=== PATIENT | female | born 1985 | race Two or more races ===

== ENCOUNTER 2018-05-27 15:35 | Emergency (ER) | payer MEDICAID ==
[~2018-05-27] VITALS: Ht 152.4 cm; Wt 72.6 kg
[2018-05-27 17:02] VITALS: BP 134/91
[2018-05-27] MEDS ORDERED: KETOROLAC TROMETH 60MG/2ML VIAL IM ONE (17:15)
== END 2018-05-27 18:07 | disposition home or self-care (01) ==
LOC: ER 15:50
DX: M43.6 Torticollis (principal)
CPT/HCPCS: 72040; 96372; 99284; J1885

== ENCOUNTER 2022-02-14 08:51 | Emergency (ER) | payer MEDICAID ==
[~2022-02-14] VITALS: Ht 152.4 cm; Wt 28.4 kg
[2022-02-14] MEDS ORDERED: ACYC-166 PO (10:14)
[2022-02-14] MEDS ORDERED: IBUP800T27 PO (10:14)
[2022-02-14] MEDS ORDERED: TRIA0.02 TOP (10:14)
[2022-02-14 10:15] VITALS: BP 125/69
== END 2022-02-14 10:29 | disposition home or self-care (01) ==
LOC: ER 08:51
DX: B02.9 Zoster without complications (principal); Z79.1 Long term (current) use of non-steroidal anti-inflammatories (NSAID); Z79.899 Other long term (current) drug therapy

== ENCOUNTER 2022-02-26 21:11 | Emergency (ER) | payer MEDICAID ==
[~2022-02-26] VITALS: Ht 152.4 cm; Wt 80.0 kg
[~2022-02-26 21:11] MED LIST: ACYC-166 PO; IBUP800T27 PO; TRIA0.02 TOP
[2022-02-26 22:33] LABS: Urine Bacteria FEW /hpf (None Seen); Urine Blood Negative /uL (Negative); Urine Specific Gravity 1.026 (1.001-1.035); Urine WBC 6 /hpf (0 - 5)
[2022-02-26 22:33] LABS: Basophils # (auto) 0.1 10 ^3/uL (0-0.2); Basophils % (auto) 0.9 % (0.0-2.0); Eosinophils # (auto) 0.1 10 ^3/uL (0-0.8); Hematocrit 40.5 % (36.0-46.0); Hemoglobin 13.4 g/dL (12.2-16.2); Lymphocytes # (auto) 3.1 10 ^3/uL (0.4-5.4); Lymphocytes % (auto) 34.7 % (10.0-50.0); Mean Corpuscular Hemoglobin 29.7 pg (28.0-32.0); Mean Corpuscular Hgb Conc. 33.1 g/dL (32.0-36.0); Mean Corpuscular Volume 89.8 fL (80.0-100.0); Monocytes # (auto) 0.7 10 ^3/uL (0-1.3); Monocytes % (auto) 8.2 % (0.0-12.0); Neutrophils % (auto) 55.2 % (37.0-80.0); Red Blood Cells 4.51 10^6/uL (4.0-5.20); Red Cell Distribution Width 14.1 % (11.8-14.3)
[2022-02-26 23:05] LABS: Albumin 3.5 g/dL (3.4-5.0); Calcium 8.9 mg/dL (8.5-10.1); Potassium 3.7 mmol/L (3.5-5.1)
[2022-02-26 23:07] LABS: BUN/Creatinine Ratio 12.9
[2022-02-26 23:09] LABS: Bilirubin, Total 0.4 mg/dL (0.2-1.0); Total Protein 7.5 g/dL (6.4-8.2)
[2022-02-26 23:13] LABS: Alcohol, Urine < 3.0 mg/dL (0-10); Amphetamine Screen, Urine NEGATIVE (NEGATIVE); Barbiturate Scree,Urine NEGATIVE (NEGATIVE); Benzodiazephine Screen, Urine NEGATIVE (NEGATIVE); Cannabinoid Screen, Urine NEGATIVE (NEGATIVE); Cocaine Screen, Urine NEGATIVE (NEGATIVE); Opiate Scree,Urine NEGATIVE (NEGATIVE); Phencyclidine Screen, Urine NEGATIVE (NEGATIVE)
[2022-02-26] MEDS ORDERED: ALBUTEROL SULF 2.5 MG/0.5ML(0.5%) NEB SOLN NEB ONE (23:45)
[2022-02-26] MEDS ORDERED: IPRATROPIUM BROM 0.5 MG/2.5ML INH SOL NEB ONE (23:45)
[2022-02-26] MEDS ORDERED: ASPirin 325 MG TAB PO ONE (23:45)
[2022-02-27] MEDS ORDERED: KETOROLAC TROMETH 60MG/2ML VIAL IM ONE (02:45)
[2022-02-27] MEDS ORDERED: NITR-87 PO (03:32)
[2022-02-27 03:40] VITALS: BP 102/72
== END 2022-02-27 03:45 | disposition home or self-care (01) ==
LOC: ER 21:11
DX: R07.89 Other chest pain (principal); N39.0 Urinary tract infection, site not specified; Z79.1 Long term (current) use of non-steroidal anti-inflammatories (NSAID); Z79.899 Other long term (current) drug therapy
CPT/HCPCS: 36415; 71045; 80053; 80307; 81001; 84484; 84702; 85025; 85379; 93005; 94640; 96372; 99285; J1885; J7644

== ENCOUNTER → 2023-04-24 | Emergency (ER) | payer MEDICAID ==
[~2023-04-24] MED LIST changes: -ACYC-166 PO; +ACYC1TAB3 PO; +IBUP-1456 PO; -IBUP800T27 PO; +NITR-87 PO
== END | disposition left against medical advice (07) ==
LOC: ER 07:33
DX: R05.9 Cough, unspecified (principal); R07.89 Other chest pain; Z53.21 Procedure and treatment not carried out due to patient leaving prior to being seen by health care provider
CPT/HCPCS: 71045

== ENCOUNTER → 2024-01-28 | Outpatient (CLI) | payer MEDICAID ==
[2024-01-28 12:24] LABS: Chloride 105 mmol/L (98-107); Potassium 3.6 mmol/L (3.5-5.1); Sodium 138 mmol/L (136-145)
[2024-01-28 12:25] LABS: Anion Gap 6 (5-15); Calcium 9.6 mg/dL (8.7-10.4); Carbon Dioxide 27 mmol/L (20-30)
[2024-01-28 12:30] LABS: Glucose 81 mg/dL (74-106)
[2024-01-28 12:31] LABS: BUN/Creatinine Ratio 8.2 (10.0-20.0); Blood Urea Nitrogen < 5 mg/dL (9-23); Magnesium 1.8 mg/dL (1.6-2.6)
== END | disposition home or self-care (01) ==
LOC: LAB 11:53
PROVIDERS: ATTEND Physician Assistant
DX: L70.0 Acne vulgaris (principal); L70.8 Other acne
CPT/HCPCS: 36415; 80048; 83735

== ENCOUNTER → 2024-02-18 | Outpatient (CLI) | payer MEDICAID ==
[2024-02-18 09:11] LABS: Urine Bacteria None Seen /hpf (None Seen)
[2024-02-18 09:12] LABS: Basophils # (auto) 0.1 10 ^3/uL (0-0.2); Basophils % (auto) 1.2 % (0.0-2.0); Eosinophils # (auto) 0.2 10 ^3/uL (0-0.8); Eosinophils % (auto) 2.1 % (0.0-7.0); Hematocrit 41.5 % (36.0-46.0); Hemoglobin 14.5 g/dL (12.2-16.2); Lymphocytes # (auto) 2.5 10 ^3/uL (0.4-5.4); Lymphocytes % (auto) 28.1 % (10.0-50.0); Mean Corpuscular Hemoglobin 31.3 pg (28.0-32.0); Mean Corpuscular Volume 89.4 fL (80.0-100.0); Monocytes # (auto) 0.8 10 ^3/uL (0-1.3); Monocytes % (auto) 8.8 % (0.0-12.0); Neutrophils # (auto) 5.3 10 ^3/uL (1.6-8.6); Neutrophils % (auto) 59.8 % (37.0-80.0); Red Blood Cells 4.65 10^6/uL (4.0-5.20); Red Cell Distribution Width 14.3 % (11.8-14.3); White Blood Cell 8.9 10^3/uL (4.4-10.8)
[2024-02-18 09:38] LABS: Alanine Aminotransferase 51 U/L (7-40); Albumin 4.3 g/dL (3.2-4.8); Alkaline Phosphatase 86 U/L (46-116); Anion Gap 5 (5-15); Aspartate Aminotransferase 22 U/L (13-40); BUN/Creatinine Ratio 14.1 (10.0-20.0); Blood Urea Nitrogen 9 mg/dL (9-23); Calcium 9.7 mg/dL (8.7-10.4); Carbon Dioxide 26 mmol/L (20-30); Chloride 106 mmol/L (98-107); Glucose 85 mg/dL (74-106); Potassium 4.2 mmol/L (3.5-5.1); Sodium 137 mmol/L (136-145)
[2024-02-18 09:39] LABS: Bilirubin, Total 0.6 mg/dL (0.2-1.0); Total Protein 7.3 g/dL (5.7-8.2)
[2024-02-18 10:18] LABS: Urine Blood Negative /uL (Negative); Urine Clarity Turbid (Clear); Urine Color Light-Yellow (Yellow); Urine Protein, UAD Negative (Negative); Urine Specific Gravity 1.019 (1.001-1.035); Urine Urobilinogen Normal (Negative); Urine WBC 2 /hpf (0 - 5)
== END | disposition home or self-care (01) ==
LOC: LAB 08:59
PROVIDERS: ATTEND Student in an Organized Health Care Education/Training Program
DX: R73.9 Hyperglycemia, unspecified (principal); R03.0 Elevated blood-pressure reading, without diagnosis of hypertension
CPT/HCPCS: 36415; 80053; 81001; 83036; 84443; 85025

== ENCOUNTER → 2024-06-17 | Outpatient (CLI) | payer MEDICAID ==
[2024-06-17 10:15] LABS: Basophils # (auto) 0 10 ^3/uL (0-0.2); Basophils % (auto) 0.8 % (0.0-2.0); Eosinophils # (auto) 0.1 10 ^3/uL (0-0.8); Eosinophils % (auto) 1.7 % (0.0-7.0); Hematocrit 40.7 % (36.0-46.0); Hemoglobin 13.7 g/dL (12.2-16.2); Lymphocytes # (auto) 2.4 10 ^3/uL (0.4-5.4); Lymphocytes % (auto) 43.4 % (10.0-50.0); Mean Corpuscular Hemoglobin 30.7 pg (28.0-32.0); Mean Corpuscular Hgb Conc. 33.7 g/dL (32.0-36.0); Mean Corpuscular Volume 91.1 fL (80.0-100.0); Monocytes # (auto) 0.5 10 ^3/uL (0-1.3); Monocytes % (auto) 9.5 % (0.0-12.0); Neutrophils # (auto) 2.4 10 ^3/uL (1.6-8.6); Neutrophils % (auto) 44.6 % (37.0-80.0); Nucleated Red Blood Cells % 0.1 %; Platelet Count (auto) 413 10^3/uL (140-450); Red Blood Cells 4.47 10^6/uL (4.0-5.20); Red Cell Distribution Width 13.7 % (11.8-14.3); White Blood Cell 5.5 10^3/uL (4.4-10.8)
[2024-06-17 10:55] LABS: Erythrocyte Sedimentation Rate 17 mm/hr (0-20)
== END | disposition home or self-care (01) ==
LOC: LAB 09:52
PROVIDERS: ATTEND Allergy & Immunology
DX: J31.0 Chronic rhinitis (principal)
CPT/HCPCS: 36415; 85025; 85652

== ENCOUNTER → 2024-07-05 | Day surgery (SDC) | payer MEDICAID ==
[2024-06-30 10:30] LABS: Basophils # (auto) 0.1 10 ^3/uL (0-0.2); Basophils % (auto) 1.8 % (0.0-2.0); Eosinophils # (auto) 0.1 10 ^3/uL (0-0.8); Eosinophils % (auto) 1.1 % (0.0-7.0); Hematocrit 40.5 % (36.0-46.0); Hemoglobin 13.7 g/dL (12.2-16.2); Lymphocytes # (auto) 2.2 10 ^3/uL (0.4-5.4); Lymphocytes % (auto) 31.6 % (10.0-50.0); Mean Corpuscular Hemoglobin 30.5 pg (28.0-32.0); Mean Corpuscular Hgb Conc. 33.8 g/dL (32.0-36.0); Mean Corpuscular Volume 90.3 fL (80.0-100.0); Monocytes # (auto) 0.5 10 ^3/uL (0-1.3); Monocytes % (auto) 6.9 % (0.0-12.0); Neutrophils # (auto) 4.1 10 ^3/uL (1.6-8.6); Neutrophils % (auto) 58.6 % (37.0-80.0); Platelet Count (auto) 457 10^3/uL (140-450); Red Blood Cells 4.48 10^6/uL (4.0-5.20); Red Cell Distribution Width 13.8 % (11.8-14.3)
[2024-06-30 10:45] LABS: INR 1.04 (0.9-1.15); Partial Thromboplastin Time 31.1 SEC (24.5-34.5)
[2024-06-30 10:49] LABS: Alanine Aminotransferase 15 U/L (7-40); Albumin 4.4 g/dL (3.2-4.8); Alkaline Phosphatase 77 U/L (46-116); Anion Gap 6 (5-15); Aspartate Aminotransferase 15 U/L (13-40); BUN/Creatinine Ratio 16.2 (10.0-20.0); Bilirubin, Total 0.6 mg/dL (0.2-1.0); Blood Urea Nitrogen 11 mg/dL (9-23); Calcium 9.6 mg/dL (8.7-10.4); Carbon Dioxide 27 mmol/L (20-31); Chloride 107 mmol/L (98-107); Glucose 83 mg/dL (74-106); Potassium 3.9 mmol/L (3.5-5.1); Sodium 140 mmol/L (136-145); Total Protein 7.4 g/dL (5.7-8.2)
[~2024-07-05] VITALS: Ht 152.4 cm; Wt 73.5 kg
[~2024-07-05] MED LIST changes: -ACYC1TAB3 PO; +CETI10TA2 PO; +DexAMETHasone SOD PHOS 10MG/1ML VIAL INJ ONE; -IBUP-1456 PO; +MEPERIDINE HCL (25 MG/ML) 1ML VIAL ONE; +MIDAZOLAM HCL 2MG/2ML 2ml VIAL (1mg/ml) ONE; -NITR-87 PO; +ONDANSETRON HCL 4 MG/2 ML VIAL IM ONE; +PROPOFOL 10 MG/ML 20 ML IV ONE; +SEMA2INJ3 SC; +SPIR50TA5 PO; -TRIA0.02 TOP; +fentaNYL CITRATE 100 MCG/2 ML VL ONE
[2024-07-05 12:15] VITALS: RESP 10; TEMP 98; O2SAT 100
--- NOTE | 2024-07-05 12:16 | DVHOP2 ---
Operative Report DATE OF OPERATION: 07/05/24 PROCEDURE: Diagnostic Colonoscopy. PREOPERATIVE INDICATION: The patient is a 39 -year-old female undergoing colonoscopy for colon cancer screening complaining of rectal pain due to hemorrhoids POSTOPERATIVE DIAGNOSES: 1. Patient had one to 2+ internal external hemorrhoids with hypertrophied anal papilla 2. Otherwise completely normal colonoscopy examination up to the cecum and terminal ileum PROCEDURE PERFORMED BY: Amita Sanches M.D. SCOPE: Olympus videocolonoscope. ASA CLASS: 2. PREOPERATIVE MEDICATIONS: Dr. Mik Espinoza PROCEDURE IN DETAIL: After obtaining an informed consent, the patient was placed on left lateral decubitus position. She was then sedated with the above medications. A rectal examination was performed that was normal. The colonoscope was then passed through the anus into the rectosigmoid and through the descending, transverse, and ascending colon up to the cecum with visualization of the appendiceal orifice, base of the cecum and the ileocecal valve. The colonoscope was then withdrawn. The distal 5-10 cm of the terminal ileum were normal. There were no polyps or masses. There was no clear-cut diverticular disease or colitis On retroflexion and straight on view patient had 2+ internal external hemorrhoids with hypertrophied anal papilla The patient tolerated the procedure well without difficulty. WITHDRAWAL TIME: 6 minutes QUALITY OF THE PREP: Warren Bowel Prep score: 9. COMPLICATIONS : None SPECIMENS: None DISPOSITION: Stable D/C to home PLAN: 1. Repeat colonoscopy in 10 years 2. Local anorectal hemorrhoidal care, patient is considering surgical hemorrhoidectomy 3. Increase fluid and fiber intake 4. Resume diet as tolerated 5. Outpatient follow up with me in 4-6 weeks to review results and discuss further management AMITA SANCHES MD Jul 05, 2024 12:16
[2024-07-05 12:38] VITALS: BP 123/81; PULSE 88; RESP 17; O2SAT 99
[2024-07-05] MEDS: ONDANSETRON HCL 4 MG/2 ML VIAL ONE (12:58)
== END | disposition home or self-care (01) ==
LOC: GI 09:16
PROVIDERS: ATTEND Internal Medicine Gastroenterology
DX: K59.09 Other constipation (principal); R10.32 Left lower quadrant pain; K64.4 Residual hemorrhoidal skin tags; K62.89 Other specified diseases of anus and rectum; E66.9 Obesity, unspecified; Z68.31 Body mass index [BMI] 31.0-31.9, adult; Z79.899 Other long term (current) drug therapy
CPT/HCPCS: 36415; 45378; 80053; 84702; 85025; 85610; 85730; J1100; J2175; J2250; J2405; J2704; J3010; J7030